=== PATIENT | male | born 1940 | race Caucasian/White ===

== ENCOUNTER 2019-07-28 02:57 | Inpatient (IN) | payer BC ==
[~2019-07-28] VITALS: Ht 172.7 cm; Wt 65.4 kg
[2019-07-28 03:08] VITALS: Ht 172.7 cm; Wt 65.4 kg
--- NOTE | 2019-07-28 03:14 | NUR ---
PT BIBA FOR FALL 20 [employer] TE[employer]ER. PER FACILITY, PT FELL IN DOOR WAY. PT IS ANSWERING QUESTIOS W/YES AND NO. PER FACILITY MEMBER HE IS ANXTIOUS, THIS IS HIS BASELINE . PT HAS SWOLLEN LEFT SIDE OF LIP. PT HAS 1CM LACERATION UNDER THE EYE AND LACERATION ON FOREHEAD. NO ALOC. DR. ROMERO AT BEDSIDE FOR MSE. NO S/S OF DISTRESS. RESP E/U. VSS. WILL CONTINUE TO MONITOR.
[2019-07-28 03:44] LABS: BASOPHIL % 0.8 % (0-2); PLATELET COUNT 222 x10^3mcL (130-400); RED CELL DISTRIBUTION WIDTH 12.3 % (11.5-14.5)
[2019-07-28 04:01] LABS: CARBON DIOXIDE 20.8 mmol/L (21-32); CHLORIDE SERUM 102 mmol/L (98-107); CREATININE SERUM 1.2 mg/dL (0.7-1.3); GLUCOSE SERUM 114 mg/dL (74-106); POTASSIUM SERUM 4.4 mmol/L (3.5-5.1); SODIUM SERUM 140 mmol/L (136-145)
[2019-07-28 04:07] LABS: ALKALINE PHOSPHATASE 102 U/L (46-116); ALT/SGPT 10 U/L (16-63); AST/SGOT 15 U/L (15-37); BILIRUBIN TOTAL 1.37 mg/dL (0.20-1.00); TOTAL PROTEIN, SERUM 7.1 g/dL (6.4-8.2)
--- NOTE | 2019-07-28 04:11 | NUR ---
PT RETURNED FROM CT
[2019-07-28] MEDS ORDERED: TYL650S PO (04:57)
[2019-07-28] MEDS ORDERED: MOM PO (04:58)
[2019-07-28] MEDS ORDERED: MP PO (04:58)
--- NOTE | 2019-07-28 05:00 | NUR ---
DURING SUTURE REMOVAL, STAFF STATED THAT PT HAD ALOC FOR 1-[address] NICK SEGUNDO.
[2019-07-28] MEDS ORDERED: ATIVAN0.5 M1 PO (05:02)
[2019-07-28] MEDS ORDERED: [UNRECOGNIZED DRUG - CODE] (05:03)
[2019-07-28] MEDS ORDERED: AMBIEN5 MG PO (05:03)
[2019-07-28] MEDS ORDERED: RESTORIL15 MG (05:03)
[2019-07-28] MEDS ORDERED: PROPRANOLOL HCL20 MG PO (05:03)
[2019-07-28] MEDS ORDERED: LEXAPRO5 M1 PO (05:04)
[2019-07-28] MEDS ORDERED: ZOCOR20 MG PO (05:04)
[2019-07-28] MEDS ORDERED: SINEMET 25-1001 TAB PO (05:04)
[2019-07-28] MEDS ORDERED: EFFEXOR-XR37.5 MG PO (05:04)
[2019-07-28] MEDS ORDERED: DULCOLAX5 M1 PO (05:05)
[2019-07-28] MEDS ORDERED: EFFEXOR-XR75 MG PO (05:05)
[2019-07-28] MEDS ORDERED: HYDROCORTISONE1.5 GM TP (05:05)
[2019-07-28] MEDS ORDERED: MIRALAX17 GM/Dose PO (05:06)
--- NOTE | 2019-07-28 05:44 | NUR ---
PT LAYING ON GURNEY IN POSITION OF COMFORT. [place] STAFF AT BEDSIDE. NO S/S OF DISTRESS. RESP E/U. WILL CONTINUE TO MONITOR.
[2019-07-28 06:09] LABS: microscopic required? NO
--- NOTE | 2019-07-28 06:14 | NUR ---
AMY RIVAS FROM [facility] CALLED FOR UPDATE ON PT. GAVE INFORTMATION
--- NOTE | 2019-07-28 06:22 | NUR ---
PT LAYING ON GURNEY IN POSITION OF COMFORT. NO S/S OF DISTRESS. RESP E/U. COMFORT MEASURES IMPLEMENTED. WILL CONTINUE TO MONITOR. PT IN SITE OF NURSES STATION.
[2019-07-28 07:24] LABS: CHOLESTEROL/HDL RATIO 2.9; MAGNESIUM 2.1 mg/dL (1.8-2.4)
--- NOTE | 2019-07-28 07:26 | NUR ---
SPOKE W/PT SISTER, STS SHE WILL COME VISIT HIM SOON.
[2019-07-28 07:31] LABS: urine erythrocyte NEGATIVE (NEGATIVE)
--- NOTE | 2019-07-28 07:51 | NUR ---
REPORT GIVEN TO TITO REYES, UPDATED ON STATUS, LABS AND VITALS. PT STABLE FOR TRANSFER. VSS, PT CALM/COOPERATIVE. UPDATED ON PLAN OF CARE, VERBALIZED UNDERSTANDING.
--- NOTE | 2019-07-28 08:03 | NUR ---
RECEIVED PT. FROM ED AWAKE AND ALERT. PT. IS CONFUSED. NO SOB, NO N/V NOTED. PT. DENIES ANY PAIN AT THIS TIME. IV SITE NOTED TO R FA. B/P= 145/78, P= 77, R.R.= 18, T= 97.3, O2 SAT.= 98% (RA). PT. HAS A LACERATION WITH SUTURES TO HIS L EYEBROW. PT. ALSO HAS ABRASION TO HIS L UPPER LIP. PHOTOGRAPHS TAKEN. SUPERVISOR SINTERING PLANT AT BEDSIDE TO MAINTAIN SAFETY. PT. IS PLACED IN TELE. MONITOR #7, WHICH IS SHOWING SR WITH BBB. BED IN LOW POS., CALL LIGHT WITHIN REACH. SIDE RAILS UP X3.
[2019-07-28 08:05] VITALS: BP 145/78
[2019-07-28 08:38] LABS: AMPHETAMINE QUAL UR NONE DETECTED (See below)
--- NOTE | 2019-07-28 12:45 | NUR ---
PT. BECOMES VERY AGITATED AND RESTLESS. PT. CONSTANTLY ATTEMPTS TO GET OUT OF BED AND COMBATIVE WITH NURSING STAFF. DR. ARMSTRONG WAS CALLED AND MADE AWARE OF PT.'S CONDITION. ORDER FOR ATIVAN IV X1 RECEIVED.
[2019-07-28 14:10] VITALS: BP 119/79
[2019-07-28 14:19] VITALS: BP 145/78
--- NOTE | 2019-07-28 14:30 | NUR ---
ECHO PENDING, REQUEST TO NOT BE DISTURBED AT THIS TIME.
--- NOTE | 2019-07-28 15:00 | NUR ---
PT. APPEARS CALM IN BED POST IV ATIVAN ADMINISTRATION.
--- NOTE | 2019-07-28 15:28 | NUR ---
PATIENT RECEIVED PNEUMOCOCCAL VACCINE IM ON RIGHT ARM. NO SIGNS OF DISTRESS NOTED. WILL CONTINUE TO MONITOR.
--- NOTE | 2019-07-28 17:41 | NUR ---
NASAL SWAB OBTAINED AND SENT TO LAB FOR MRSA SCREENING.
--- NOTE | 2019-07-28 18:03 | NUR ---
REMAINS IN STABLE CONDITION AT THIS TIME. PATIENT CARE NURSING ASSISTANT AT BEDSIDE TO MAINTAIN SAFETY. WILL CONTINUE TO MONITOR.
[2019-07-28 18:15] VITALS: BP 115/71
--- NOTE | 2019-07-28 21:03 | NUR ---
Awake and verbally responsive. Oriented to self and year but doesn't know the place. Denies pain. Denies n/v. No respiratory distress noted on room air. Sister visiting. Will cont.to monitor. SAfety maintained.
[2019-07-28 22:24] VITALS: BP 120/69
--- NOTE | 2019-07-29 | NUR ---
Asleep at this time. Sitter at the bedside. Safety maintained.
--- NOTE | 2019-07-29 04:30 | NUR ---
Afebrile. No significant change in condition noted. No suicidal ideation noted. No syncopal episode. In no apparent distress. Fall precaution observed,
[2019-07-29 06:12] LABS: BASOPHIL % 0.6 % (0-2); PLATELET COUNT 171 x10^3mcL (130-400); RED CELL DISTRIBUTION WIDTH 13.4 % (11.5-14.5)
[2019-07-29 06:15] VITALS: BP 111/64
[2019-07-29 06:29] LABS: CALCIUM 8.1 mg/dL (8.5-10.1); CHLORIDE SERUM 109 mmol/L (98-107); CREATININE SERUM 0.8 mg/dL (0.7-1.3); GLUCOSE SERUM 87 mg/dL (74-106); PHOSPHOROUS 3.5 mg/dL (2.5-4.9); POTASSIUM SERUM 3.9 mmol/L (3.5-5.1); SODIUM SERUM 144 mmol/L (136-145)
--- NOTE | 2019-07-29 07:05 | NUR ---
RECEIVED PT FROM NIGHT NURSE. PT IS LAYING DOWN IN BED WITH HOB UP RESTING WITH EYES CLOSED. RESPRIATIONS EVEN AND UNLABORED ON ROOM AIR. IV SITE PATENT WITH NO SIGNS OF ERYTHEMA OR SWELLING WITH IV FLUIDS INFUSING. PT LOOKS TO BE IN NO ACUTE DISTRESS AT THIS TIME. TELE MONITOR 7 PRESENT. BED IN LOWEST POSITION, CALL LIGHT WITHIN REACH. SITTER AT BEDSIDE. WILL CONTINUE TO MONITOR.
--- NOTE | 2019-07-29 12:30 | NUR ---
PT TRANSFERED TO MED SURG PER DR. FALCON. REMOVED TELE MONITOR AND RETURNED TO TELE STATION. PT IS LAYING DOWN IN BED WITH HOB UP. PT IS MORE AWAKE THAN THIS MORNING AND IS ABLE TO RESPOND TO QUESTIONS AND COMMANDS. PT LOOKS TO BE IN NO ACUTE DISTRESS AND DENIES ANY PAIN AT THIS TIME. IV SITE PATENT WITH NO SIGNS OF ERYTHEMA OR SWELLING WITH IV FLUIDS INFUSING. SITTER AT BEDSIDE. WILL CONTINUE TO MONITOR.
--- NOTE | 2019-07-29 14:13 | NUR ---
PT IS ANXIOUS AND IS ASKING WHERE HE IS. PT STATES THAT HE IS CONFUSED AND DOES NOT KNOW WHY HE IS HERE. REORIENTED PT TO UNIT AND INTRODUCED TO SITTER AND PRIMARY RN. INFORMED PT WHERE HE IS AND WHERE HE CAME FROM. AFTER GETTING THIS INFORMATION PT CALMED DOWN A LITTLE. OFFERED PT MEDICATION TO HELP WITH ANXIETY AND PT STATED THAT HE DOES NOT FEEL THAT HE NEEDS THE MEDICATION, IF JUST SCARED HIM WHEN HE DID NOT KNOW WHERE HE WAS. PT ASKED TO CALL SISTER AND TALK WITH HER. WILL NOTIFY FAMILY MEMBER. PT SEEMS TO BE MORE CALM AT THIS TIME AND IS WATCHING TV. BED IN LOWEST POSITION, CALL LIGHT WITHIN REACH. WILL CONITNUE TO MONITOR.
--- NOTE | 2019-07-29 14:37 | NUR ---
PT STILL FEELING VERY ANXIOUS AND IS SAYING "I DON'T KNOW WHERE I AM." REORIENTED PT TO PLACE, UNIT AND STAFF AND PT STATES FEELING BETTER AND THEN COMMENTS ABOUT THE TV SHOW. PT HANDS ARE SHAKING AND PT STATES HE STILL FEELS ANXIOUS. OFFERED PT ATIVAN TO HELP WITH THE ANXIETY AND PT AGREEABLE. WILL MEDICATE PT ACCORDING TO EMAR.
--- NOTE | 2019-07-29 15:02 | NUR ---
PHYSICAL THERAPY NOTE ATTEMPTED FOR SCHEDULED PHYSICAL THERAPY SESSION. PATIENT REFUSED. WILL FOLLOW UP TOMORROW 07/30/19.
--- NOTE | 2019-07-29 16:47 | NUR ---
PT WAS SEEN FOR DYSPHAGIA. PT WAS ABLE TO SAFELTY SWALLOW REGULAR DIET WITH THIN LIQUID. HOWEVER, PT WAS TAKING BIG BITES AND EATING WITH FAST RATE. RECOMMENDATION MS DIET WITH CHOPPED MEAT AND VEG WITH THIN LIQUID SUPERVISION FOR SMALL BITES AND SIPS.
[2019-07-29 17:07] VITALS: BP 121/69
--- NOTE | 2019-07-29 18:40 | NUR ---
PT IS LAYING DOWN IN BED WITH HOB UP. PT IS REQUESTING TO HAVE SOMETHING TO HELP WITH ANXIETY. PT LOOKS TO BE IN NO ACUTE DISTRESS BUT STATES IS FEELING ANXIOUS AND PT DENIES ANY PAIN. RESPRIATIONS EVEN AND UNLABORED ON ROOM AIR. SITTER AT BEDSIDE. CALL LIGHT WITHIN REACH. WILL ENDORSE TO ONCOMING SHIFT.
[2019-07-29 19:57] VITALS: BP 125/73
--- NOTE | 2019-07-29 20:32 | NUR ---
PT RECIEVED AAO REG RESP NO SOB V/S STABLE,KEPT CLEAN AND DRY TO TOUCH,IV INFUSING WELL WITH THE SITE PATENT AND INTACT,BED IN THE LOW POSITION AND LOCKED,KPET CLEAN AND DRY TO TOUCH,CALL LIGHT EASY REACHED AND WILL CONTINUE TO MONITOR.
--- NOTE | 2019-07-30 05:10 | NUR ---
HAD A CALL FROM [facility] THERE IS A BED AVAILABLE AND WILL BE READY AFTER 0700,MADE DR FELICIA JACKSON AND CHARGE NURSE,PT RESTING AT THIS TIME,WILL CONTINUE TO MONITOR.
[2019-07-30 06:13] VITALS: BP 130/76
--- NOTE | 2019-07-30 06:13 | NUR ---
pt had a resting night no change at this time,will continue to monitor.
--- NOTE | 2019-07-30 07:20 | NUR ---
RECEIVED PT IN NO ACUTE DISTRESS. SLEEPING BUT EASILY AROUSABLE. GAUZE AND BAND-AID NOTED TO Saba SHAH, C/D/I. PT APPEARS COMFORTABLE, NO PAIN NOTED. BREATHING EVEN AND UNLABORED. IV TO RFA, PT REFUSING IV FLUIDS. 1:1 SITTER AT BEDSIDE. SAFETY PRECAUTIONS IN PLACE. BED IN LOW POSITION, CALL LIGHT WITHIN REACH. WILL CONTINUE TO MONITOR.
[2019-07-30 08:42] VITALS: BP 130/76
[2019-07-30 08:54] VITALS: BP 153/82
--- NOTE | 2019-07-30 11:52 | NUR ---
CALLED [facility] AND GAVE REPORT TO ELTON REYES. PT'S TRANSPORT [facility] SET TO ARRIVE BEFORE 12 NOON PER LETITIA FOSTER. PT RESTING IN BED. GIVEN BED BATH BY CAT ARANGO. CHANGED INTO PINK GOWN AND GIVEN PINK BLANKET FOR TRANSPORT. IV TO [facility]AC DC'D WITH CATHETER INTACT. BELONGINGS WITH PT. 1:1 SITTER. WILL CONTINUE TO MONITOR.
--- NOTE | 2019-07-30 12:31 | NUR ---
SPOKE WITH ELTON REYES FROM [facility] AND GIVEN UPDATE REGARDING PT NOT ABLE TO BE ACCEPTED BY [facility] AT THIS TIME DUE TO PENDING DISCHARGES. ELTON REYES WILL CALL BACK WHEN PT IS ABLE TO BE ACCEPTED AT [facility]. DEANNA WAS CALLED AND SPOKE WITH LASHAY REGARDING PUTTING PT'S TRANSPORT ON WILL CALL AT THIS TIME. ISAI REYES MADE AWARE.
--- NOTE | 2019-07-30 13:18 | NUR ---
PT A LITTLE AGITATED AT THIS TIME. STATED "I'VE BEEN RESTING FOR TOO LONG." ASSISTED PT TO STAND UP. NOW WALKING IN THE HALLWAYS WITH EJ ARANGO, GAIT SLOW BUT STEADY. PT WITH NON-SLIP SOCKS. WILL CONTINUE TO MONITOR.
--- NOTE | 2019-07-30 14:24 | NUR ---
PT VERY AGITATED, STATING "I WANNA GET THE FUCK OUT OF HERE." ATTEMPTED TO GIVE ATIVAN IM ORDERED, PT REFUSED. ADORE CHEN AWARE AND AT BEDSIDE. PT WAS INFORMED BY ADORE CHEN THAT IF HE LEAVES, [place] [employer] WILL BE CALLED AND PT WILL BE ARRESTED DUE TO 5150 HOLD. PT STATED "I DON'T CARE, GIVE ME MY SHOES." SECURITY CALLED AND AT BEDSIDE NOW SPEAKING WITH PT.
--- NOTE | 2019-07-30 14:29 | NUR ---
PHYSICAL THERAPY DAILY NOTES CO-SIGN All documentation done by the Brown Stock Washer for 07/30/19 has been reviewed. I agree with the documentation. Reviewed/Co-Signed by: Katerina Corral PT Documentation Done by: PINA TURK PTA
--- NOTE | 2019-07-30 16:17 | NUR ---
PT AWAKE, ALERT, CONFUSED. PT VERY ANXIOUS, MEDICATED ORDERED. DISCHARGE PACKET WITH PT. PT'S SISTER VIKTORIYA KENRICK AWARE. PT GOING TO [facility], PICKED UP BY [facility] TRANSPORT TEAM WITH FRANK. BELONGINGS WITH PT. [facility] TRANSPORT TEAM ACCOMPANIED PT TO LOBBY.
== END 2019-07-30 16:20 | DRG 57 ==
LOC: EDBD 02:57 → ED 02:57 → DU 05:34 → MU 05:34 → DU 08:05 → MU 07-29 12:27
PROVIDERS: Emergency Medicine; Internal Medicine; ADMIT Internal Medicine
PROC: 0HQ1XZZ Repair Face Skin, External Approach (ICD-10-PCS; principal; 2019-07-28)
DX: G20 Parkinson's disease (principal); F33.9 Major depressive disorder, recurrent, unspecified; F02.80 Dementia in other diseases classified elsewhere, unspecified severity, without behavioral disturbance, psychotic disturbance, mood disturbance, and anxiety; S01.112A Laceration without foreign body of left eyelid and periocular area, initial encounter; E86.0 Dehydration; R55 Syncope and collapse; F41.9 Anxiety disorder, unspecified; I45.10 Unspecified right bundle-branch block; I10 Essential (primary) hypertension; E78.5 Hyperlipidemia, unspecified; Z68.23 Body mass index [BMI] 23.0-23.9, adult; Z91.5 Personal history of self-harm; W19.XXXA Unspecified fall, initial encounter; Y92.239 Unspecified place in hospital as the place of occurrence of the external cause
CPT/HCPCS: 83880; 90732; 92526-GN; 92610-GN; 97116-GP; G0378; J2001; J2060; J7030; Q0092